=== PATIENT | female | born 1990 ===

== ENCOUNTER 2017-02-18 09:53 | Emergency (ER) | payer SELFPAY ==
[2017-02-18 09:59] VITALS: BMI 17.2
--- NOTE | 2017-02-18 10:35 | C.PDOC ---
Time Seen by Provider: 02/18/17 10:20 Chief Complaint (Nursing): Syncope Past Medical History Vital Signs: Last Vital Signs Temp 98.1 F 02/18/17 10:00 Pulse 90 02/18/17 10:00 Resp 18 02/18/17 10:00 BP 115/65 02/18/17 10:00 Pulse Ox 99 02/18/17 10:00 - Medical History PMH: Asthma Denies: Chronic Kidney Disease Family History: States: Unknown Family Hx - Social History Hx Tobacco Use: No Hx Alcohol Use: No Hx Substance Use: No (unknown) - Immunization History Hx Influenza Vaccination: Yes (up to date) Hx Pneumococcal Vaccination: No ED Course And Treatment O2 Sat by Pulse Oximetry: 99
[2017-02-18] MEDS ORDERED: Sodium Chloride 0.9% 1,000 ML IV ONE (10:40)
[2017-02-18] MEDS ORDERED: Sodium Chloride 0.9% 1,000 ML ONE (11:00)
[2017-02-18 11:13] LABS: BASO % 0.4 % (0.0-2.0); EOS # 0.1 K/uL (0.0-0.7); EOS % 0.8 % (0.0-4.0); HEMATOCRIT 33.8 % (34.0-47.0); LYMPH # 2.2 K/uL (1.0-4.3); LYMPH % 24.6 % (20.0-40.0); MEAN CELL VOLUME 85.4 fL (81.0-99.0); MEAN CORPUSCULAR HEMOGLOBIN 27.9 pg (27.0-31.0); MEAN CORPUSCULAR HGB CONC 32.6 g/dL (33.0-37.0); MEAN PLATELET VOLUME 9.7 fL (7.2-11.7); MONO # 0.7 K/uL (0.0-0.8); MONO % 7.4 % (0.0-10.0); NRBC % 0.1 % (0.0-2.0); RED CELL DISTRIBUTION WIDTH 14.6 % (11.5-14.5); WHITE BLOOD COUNT 9.1 K/uL (4.8-10.8)
--- NOTE | 2017-02-18 11:25 | C.PDOC ---
History Of Present Illness 26 yr old female presents to the ER stating yesterday she was at a concert, started to feel weak and passed out. Admits to drinking alcohol and not eating well. Believes the heat caused the symptoms. Pt was evaluated in the ambulance, felt better after cooling down and did not want to be further evaluated. Patient comes in today stating she still feels weak. Pt is concerned she is . Denies seizure activity. Patient denies fever, vision changes, chest pain, SOB, nausea, vomiting, headache or dizziness. Time Seen by Provider: 02/18/17 10:20 Chief Complaint (Nursing): Syncope History Per: Patient History/Exam Limitations: no limitations Onset/Duration Of Symptoms: Days (1) Current Symptoms Are (Timing): Still Present Past Medical History Reviewed: Historical Data, Nursing Documentation, Vital Signs Vital Signs: Last Vital Signs Temp 97.4 F L 02/18/17 12:15 Pulse 63 02/18/17 12:15 Resp 20 02/18/17 12:15 BP 114/76 02/18/17 12:15 Pulse Ox 100 02/18/17 12:15 - Medical History PMH: Asthma Family History: States: No Known Family Hx - Social History Hx Tobacco Use: No Hx Alcohol Use: No Hx Substance Use: No (unknown) - Immunization History Hx Influenza Vaccination: Yes (up to date) Hx Pneumococcal Vaccination: No Review Of Systems Except As Marked, All Systems Reviewed And Found Negative. Constitutional: Positive for: Weakness. Negative for: Fever Eyes: Negative for: Vision Change Cardiovascular: Negative for: Chest Pain Respiratory: Negative for: Shortness of Breath Gastrointestinal: Negative for: Nausea, Vomiting Neurological: Negative for: Headache, Dizziness Physical Exam - Physical Exam Appears: Well, Non-toxic, No Acute Distress Skin: Normal Color, Warm, Dry, No Rash Head: Atraumatic, Normacephalic Eye(s): bilateral: Normal Inspection, PERRL, EOMI Nose: Normal Oral Mucosa: Moist Neck: Normal, Normal ROM, Supple Lymphatic: Normal Exam Chest: Symmetrical, No Tenderness Cardiovascular: Rhythm Regular, No Murmur Respiratory: Normal Breath Sounds, No Rales, No Rhonchi, No Wheezing Gastrointestinal/Abdominal: Normal Exam, Soft, No Tenderness, No Guarding, No Rebound Extremity: Normal ROM, No Swelling Neurological/Psych: Oriented x3, Normal Speech, Normal Cognition, Normal Cranial Nerves (2-12), Normal Motor, Other (no focal deficits.) ED Course And Treatment - Laboratory Results Result Diagrams: 02/18/17 11:06 02/18/17 11:06 ECG: Interpreted By Me, Viewed By Me ECG Rhythm: Sinus Bradycardia Rate From EC O2 Sat by Pulse Oximetry: 99 Progress Note: PLAN: EKG, Drug Screen, CBC, HCG, Urinalysis & Sodium Chlordie IV. Discussed risks and benefits of head CT, pt refused. Discussed lab results and limitations. Pt requests discharge and will follow up outpt. Instructed strict follow up in 1-2 days or return to ER if symptoms persist or worsen. Disposition - Disposition Disposition: HOME/ ROUTINE Disposition Time: 12:07 Condition: STABLE Additional Instructions: Follow up with your primary medical doctor or clinic in 2-5 days for further evaluation. Return to the emergency department at any time if symptoms persist or worsen. Instructions: Weakness (ED) - Clinical Impression Clinical Impression: Weakness - PA / AIRCRAFT AIR CONDITIONING MECHANIC / Resident Statement MD/DO has reviewed & agrees with the documentation as recorded. - Scribe Statement The provider has reviewed the documentation as recorded by the Scribe Frida Mckeon All medical record entries made by the Scribe were at my direction and personally dictated by me. I have reviewed the chart and agree that the record accurately reflects my personal performance of the history, physical exam, medical decision making, and the department course for this patient. I have also personally directed, reviewed, and agree with the discharge instructions and disposition.
[2017-02-18 11:27] LABS: CHLORIDE 105 mmol/L (98-107); SODIUM 139 mmol/L (132-148)
[2017-02-18 11:28] LABS: POTASSIUM 3.6 mmol/L (3.6-5.2)
[2017-02-18 11:30] LABS: ALB/GLOB RATIO 1.6 (1.0-2.1); AST/SGOT 13 U/L (14-36); BILIRUBIN,TOTAL 0.4 mg/dL (0.2-1.3); BLOOD UREA NITROGEN 15 mg/dL (7-17); CARBON DIOXIDE 25 mmol/L (22-30); GFR AFRICAN-AMERICAN > 60; TOTAL PROTEIN 6.5 g/dL (6.3-8.3)
[2017-02-18 11:31] LABS: CALCIUM 8.7 mg/dl (8.6-10.4); GLUCOSE,RANDOM 81 mg/dL (65-105)
[2017-02-18 11:32] LABS: ALKALINE PHOSPHATASE 47 U/L (38-126); ALT/SGPT 17 U/L (9-52)
[2017-02-18 11:54] LABS: RBC URINE 1 /hpf (0-3); URINE BILIRUBIN NEGATIVE (NEGATIVE); URINE BLOOD NEGATIVE (NEGATIVE); URINE COLOR Yellow (YELLOW); URINE GLUCOSE (UA) NORMAL (Normal); URINE KETONE NEGATIVE (NEGATIVE); URINE LEUKOCYTE ESTERASE NEG Leu/uL (Negative); URINE PROTEIN NEGATIVE (NEGATIVE); URINE UROBILINOGEN NORMAL mg/dL (0.2-1.0)
[2017-02-18 12:16] VITALS: BP 114/76; PULSE 63; RESP 20; TEMP 97.4
[2017-02-18 14:10] VITALS: O2SAT 99
--- NOTE | 2017-02-19 12:03 | CARD ---
APPROVED REPORT EKG Measurement Heart [id number] <Conclusion> Sinus bradycardia with marked sinus arrhythmia Otherwise normal ECG
== END 2017-02-18 12:15 | disposition home or self-care (01) ==
LOC: C.ER 09:53
DX: R53.1 Weakness (principal)
CPT/HCPCS: 80053; 81001; 84703; 85025; 93005; 96360; 99285; G0480; J7040

== ENCOUNTER 2017-04-08 13:08 | Emergency (ER) | payer OTHER ==
[2017-04-08 13:09] VITALS: BMI 17.2
[2017-04-08 13:24] VITALS: O2SAT 98
[2017-04-08 13:59] LABS: HCG,QUALITATIVE URINE NEGATIVE (NEGATIVE)
[2017-04-08 14:09] LABS: SQUAMOUS EPITHIAL 1 /hpf (0-5); URINE BILIRUBIN NEGATIVE (NEGATIVE); URINE BLOOD NEGATIVE (NEGATIVE); URINE CLARITY Hazy (Clear); URINE COLOR Yellow (YELLOW); URINE GLUCOSE (UA) NORMAL (Normal); URINE LEUKOCYTE ESTERASE NEG Leu/uL (Negative); URINE NITRATE NEGATIVE (NEGATIVE); URINE PROTEIN 2+ mg/dL (NEGATIVE); URINE UROBILINOGEN NORMAL mg/dL (0.2-1.0)
[2017-04-08] MEDS ORDERED: Sodium Chloride 0.9% 1,000 ML IV ONE (14:47)
--- NOTE | 2017-04-08 14:55 | C.PDOC ---
History Of Present Illness 26 y/o female w/o significant PMHx presents to the emergency department with complaints of right sided abdominal pain worsening over the past 4 days. Pt states pain is right by her scar and is worse with any movement. Pain is intermittent, aching and worse with movement, non-radiating, not affected by food.She is currently on her menses. Pt denies fever, chills, headache, dizziness, neck pain, sore throat, CP, SOB, dyspnea, diaphoresis, palpitation, vomiting, diarrhea, urinary symptoms, abnormal vaginal bleeding, loss of appetite or any other complaints. Ambulate to ED for evaluation, not n any apparent distress. Time Seen by Provider: 04/08/17 14:27 Chief Complaint (Nursing): Abdominal Pain History Per: Patient History/Exam Limitations: no limitations Onset/Duration Of Symptoms: Days Current Symptoms Are (Timing): Worse Severity: Moderate Radiation Of Pain To:: None Quality Of Discomfort: "Pain" Associated Symptoms: denies: Fever, Chills, Nausea, Vomiting, Diarrhea, Loss Of Appetite, Urinary Symptoms Exacerbating Factors: Movement Alleviating Factors: None Recent travel outside of the [place]: No Abnormal Vaginal Bleeding: No Past Medical History Reviewed: Historical Data, Nursing Documentation, Vital Signs Vital Signs: Last Vital Signs Temp 98.2 F 04/08/17 17:50 Pulse 82 04/08/17 17:50 Resp 16 04/08/17 17:50 BP 118/72 04/08/17 17:50 Pulse Ox 98 04/08/17 17:52 - Medical History PMH: Asthma Family History: States: Unknown Family Hx - Social History Hx Tobacco Use: No Hx Alcohol Use: No Hx Substance Use: No (unknown) - Immunization History Hx Influenza Vaccination: Yes (up to date) Hx Pneumococcal Vaccination: No Review Of Systems Except As Marked, All Systems Reviewed And Found Negative. Constitutional: Negative for: Fever, Chills Cardiovascular: Negative for: Chest Pain Respiratory: Negative for: Shortness of Breath Gastrointestinal: Positive for: Abdominal Pain. Negative for: Nausea, Vomiting , Diarrhea Genitourinary: Negative for: Dysuria, Frequency, Hematuria Musculoskeletal: Negative for: Back Pain Physical Exam - Physical Exam Appears: Well, Non-toxic, No Acute Distress Skin: Warm, Dry, No Rash Eye(s): bilateral: PERRL Nose: No Flaring Oral Mucosa: Moist, No Drooling Throat: No Erythema, No Drooling Neck: Supple Cardiovascular: Rhythm Regular Respiratory: No Decreased Breath Sounds, No Accessory Muscle Use, No Rales, No Rhonchi, No Stridor, No Wheezing Gastrointestinal/Abdominal: Soft, Tenderness (suprapubic and mild RLQ), No Organomegaly, No Distention, No Guarding, No Rebound Back: No CVA Tenderness Extremity: No Pedal Edema Extremity: Bilateral: Atraumatic Neurological/Psych: Oriented x3, Normal Speech, Normal Cognition ED Course And Treatment - Laboratory Results Result Diagrams: 04/08/17 15:00 04/08/17 15:00 Lab Interpretation: Normal O2 Sat by Pulse Oximetry: 98 (room air) Pulse Ox Interpretation: Normal - CT Scan/US Abd US Other Rad Studies (CT/US): Radiology Report Reviewed CT/US Interpretation: ccession No. : [id number]. Patient Name / ID : SHANNON GARCIA / [id number]. Exam Date : 04/08/2017 16:09:53 ( Approved ). Study Comment : Sex / Age : F / 26Y. Creator : David Holland MD. Dictator : David Holland MD. Aquatics Manager : Learning Strategist : David Holland MD. Approver2 : Report Date : 04/08/2017 17:13:33. My Comment : . PROCEDURE : CT Abdomen and Pelvis with contrast. HISTORY: RLQ pain. COMPARISON: None. TECHNIQUE: Contrast dose: 100 mL Visipaque 320. Radiation dose: Total exam DLP = 188.11 mGy-cm. This CT exam was performed using one or more of the following dose reduction techniques: Automated exposure control, adjustment of the mA and/or kV according to patient size, and/or use of iterative reconstruction technique. FINDINGS: LOWER THORAX: Unremarkable. LIVER: Unremarkable. No gross lesion or ductal dilatation. GALLBLADDER AND BILE DUCTS : Unremarkable. PANCREAS: Unremarkable. No gross lesion or ductal dilatation. SPLEEN: Unremarkable. ADRENALS: Unremarkable. No mass. KIDNEYS AND URETERS: Unremarkable. No hydronephrosis. No solid mass. VASCULATURE: Unremarkable. No aortic aneurysm. BOWEL: No bowel obstruction. No abnormal bowel loops are identified. APPENDIX: Normal appendix not identified. Cannot rule out appendicitis on the basis of this examination. PERITONEUM: Small amount of fluid in the cul-de-sac. LYMPH NODES: Unremarkable. No enlarged lymph nodes. BLADDER: Poorly distended. No gross abnormality. REPRODUCTIVE: Unremarkable uterus. Probable right hydrosalpinx. This is best demonstrated on sagittal series 602, image 54 and 55. Lateral to the superior extent of this probable hydrosalpinx, there is a soft tissue density, vaguely rounded, of uncertain significance. This does not have a characteristic appearance for an abscess but could represent a phlegmon as may be seen in either appendicitis or tubo-ovarian abscess. This could represent collapsed bowel but this is felt to be less likely given the appearance of adjacent loops of small bowel. Further evaluation with pelvic ultrasound examination is advised. BONES: No acute fracture. OTHER FINDINGS: None. IMPRESSION: Right hydrosalpinx. Small amount of fluid in the cul-de-sac. Normal appendix not identified. Vaguely rounded soft tissue density at the superior extent of the right hydrosalpinx, just laterally. Uncertain significance. Possible phlegmon associated with tubo- ovarian abscess or appendicitis. Further evaluation with pelvic ultrasound examination is advised. Normal appendix not definitely identified. Cannot rule out appendicitis. Progress Note: On re-eavluation, pt remained unchanged. Afebrile, hemodynamicaly stable. Still c/o mild suprapubic discomfort. Abd: benign, (-) guarding, (-) rebound. Blood work review and appears normal. CT abd/pelvis results review : Right hydrosalpinx. Small amount of fluid in the cul-de-sac. Normal appendix not identified. Vaguely rounded soft tissue density at the superior extent of the right hydrosalpinx, just laterally. Uncertain significance. Possible phlegmon associated with tubo-ovarian abscess or appendicitis. results discussed with pt and Pelvic US with further possibel SHIFT SUPERVISOR RN evaluation recommend. Pt sts, " she can not stay any more" and wish to be discharged. Risk of leaving AMA described to patient including complication of known and uknown condition including . Pt has full capacity to make decision and still wish to sign AMA. Pt advised return to Ed at any time to complete evaluation. return to Ed at any time if any worsening ro new changes. Disposition - Disposition Disposition: AGAINST MEDICAL ADVICE Disposition Time: 17:42 Condition: STABLE Forms: [employer] (Vietnamese) - Clinical Impression Clinical Impression: Abdominal pain - PA / PATTERN DUPLICATOR / Resident Statement MD/DO has reviewed & agrees with the documentation as recorded. - Scribe Statement The provider has reviewed the documentation as recorded by the Scribe Tan Taveras All medical record entries made by the Nickibmiley were at my direction and personally dictated by me. I have reviewed the chart and agree that the record accurately reflects my personal performance of the history, physical exam, medical decision making, and the department course for this patient. I have also personally directed, reviewed, and agree with the discharge instructions and disposition.
[2017-04-08] MEDS ORDERED: Sodium Chloride 0.9% 1,000 ML ONE (14:57)
[2017-04-08 15:04] LABS: BASO % 0.2 % (0.0-2.0); EOS % 0.2 % (0.0-4.0); LYMPH # 1.2 K/uL (1.0-4.3); LYMPH % 13.3 % (20.0-40.0); MEAN CORPUSCULAR HGB CONC 33.3 g/dL (33.0-37.0); MONO # 0.5 K/uL (0.0-0.8); MONO % 5.6 % (0.0-10.0); NEUT # 7.5 K/uL (1.8-7.0); NEUT % 80.7 % (50.0-75.0); RBC 4.13 Mil/uL (3.80-5.20); RED CELL DISTRIBUTION WIDTH 14.9 % (11.5-14.5); WHITE BLOOD COUNT 9.4 K/uL (4.8-10.8)
[2017-04-08 15:15] LABS: ALBUMIN 4.3 g/dL (3.5-5.0)
[2017-04-08 15:18] LABS: ALB/GLOB RATIO 1.3 (1.0-2.1); ALT/SGPT 27 U/L (9-52); AST/SGOT 24 U/L (14-36); BLOOD UREA NITROGEN 13 mg/dL (7-17); GFR AFRICAN-AMERICAN > 60; GFR NON-AFRICAN AMERICAN > 60
[2017-04-08 15:19] LABS: CALCIUM 9.1 mg/dl (8.6-10.4)
[2017-04-08] MEDS ORDERED: Iodixanol 320 MG/ML 100 ML BOTTLE IV ONE (16:00)
--- NOTE | 2017-04-08 17:15 | CT ---
PROCEDURE: CT Abdomen and Pelvis with contrast HISTORY: RLQ pain COMPARISON: None. TECHNIQUE: Contrast dose: 100 mL Visipaque 320 Radiation dose: Total exam DLP = 188.11 mGy-cm. This CT exam was performed using one or more of the following dose reduction techniques: Automated exposure control, adjustment of the mA and/or kV according to patient size, and/or use of iterative reconstruction technique. FINDINGS: LOWER THORAX: Unremarkable. LIVER: Unremarkable. No gross lesion or ductal dilatation. GALLBLADDER AND BILE DUCTS: Unremarkable. PANCREAS: Unremarkable. No gross lesion or ductal dilatation. SPLEEN: Unremarkable. ADRENALS: Unremarkable. No mass. KIDNEYS AND URETERS: Unremarkable. No hydronephrosis. No solid mass. VASCULATURE: Unremarkable. No aortic aneurysm. BOWEL: No bowel obstruction. No abnormal bowel loops are identified. APPENDIX: Normal appendix not identified. Cannot rule out appendicitis on the basis of this examination. PERITONEUM: Small amount of fluid in the cul-de-sac. LYMPH NODES: Unremarkable. No enlarged lymph nodes. BLADDER: Poorly distended. No gross abnormality. REPRODUCTIVE: Unremarkable uterus. Probable right hydrosalpinx. This is best demonstrated on sagittal series 602, image 54 and 55. Lateral to the superior extent of this probable hydrosalpinx, there is a soft tissue density, vaguely rounded, of uncertain significance. This does not have a characteristic appearance for an abscess but could represent a phlegmon as may be seen in either appendicitis or tubo-ovarian abscess. This could represent collapsed bowel but this is felt to be less likely given the appearance of adjacent loops of small bowel. Further evaluation with pelvic ultrasound examination is advised. BONES: No acute fracture. OTHER FINDINGS: None. IMPRESSION: Right hydrosalpinx. Small amount of fluid in the cul-de-sac. Normal appendix not identified. Vaguely rounded soft tissue density at the superior extent of the right hydrosalpinx, just laterally. Uncertain significance. Possible phlegmon associated with tubo-ovarian abscess or appendicitis. Further evaluation with pelvic ultrasound examination is advised. Normal appendix not definitely identified. Cannot rule out appendicitis.
[2017-04-08 18:09] VITALS: BP 118/72; PULSE 82; RESP 16; TEMP 98.2
== END 2017-04-08 17:50 | disposition left against medical advice (07) ==
LOC: C.ER 13:08
DX: R10.31 Right lower quadrant pain (principal)
CPT/HCPCS: 74177; 80053; 81001; 84703; 85025; 96361; 96374; 96375; 99285; J1885; J2405; J7040; Q9967

== ENCOUNTER 2018-04-27 07:16 | Emergency (ER) | payer MEDICAID ==
[2018-04-27 07:16] VITALS: BMI 17.2
--- NOTE | 2018-04-27 07:59 | C.PDOC ---
History Of Present Illness 27 y/o female presents to ED for complaints of dysuria that began this morning. Patient reports "I needed to urinate but only a little came out." Denies nausea , vomiting, flank pain, or any other physical complaints. Patient also reports she has not been drinking a lot of water lately. Time Seen by Provider: 04/27/18 07:40 Chief Complaint (Nursing): Female Genitourinary History Per: Patient History/Exam Limitations: no limitations Onset/Duration Of Symptoms: Hrs Current Symptoms Are (Timing): Still Present Quality Of Discomfort: "Pain" Associated Symptoms: Urinary Symptoms. denies: Fever, Chills, Nausea, Vomiting , Diarrhea Recent travel outside of the [place]: No Abnormal Vaginal Bleeding: No Past Medical History Reviewed: Historical Data, Nursing Documentation, Vital Signs Vital Signs: Last Vital Signs Temp 98.2 F 04/27/18 07:32 Pulse 71 04/27/18 07:32 Resp 18 04/27/18 07:32 BP 114/77 04/27/18 07:32 Pulse Ox 100 04/27/18 08:03 - Medical History PMH: Asthma Family History: States: Unknown Family Hx - Social History Hx Tobacco Use: No Hx Alcohol Use: No Hx Substance Use: No (unknown) - Immunization History Hx Tetanus Toxoid Vaccination: No Hx Influenza Vaccination: No Hx Pneumococcal Vaccination: No Review Of Systems Constitutional: Negative for: Fever, Chills Gastrointestinal: Negative for: Nausea, Vomiting, Abdominal Pain, Diarrhea Genitourinary: Positive for: Dysuria. Negative for: Vaginal Discharge, Vaginal Bleeding Skin: Negative for: Rash Neurological: Negative for: Weakness, Numbness Physical Exam - Physical Exam Appears: Well, Non-toxic, No Acute Distress Skin: Normal Color, Warm, Dry, No Rash Head: Atraumatic, Normacephalic Eye(s): bilateral: Normal Inspection, PERRL, EOMI Oral Mucosa: Moist Neck: Supple Chest: Symmetrical, No Tenderness Cardiovascular: Rhythm Regular Respiratory: Normal Breath Sounds, No Decreased Breath Sounds, No Rales, No Rhonchi, No Wheezing Gastrointestinal/Abdominal: Soft, Tenderness (Minimal suprapubic tenderness) Extremity: Normal ROM, No Deformity Extremity: Bilateral: Atraumatic, Normal Color And Temperature, Normal ROM Neurological/Psych: Oriented x3, Normal Speech Gait: Steady ED Course And Treatment O2 Sat by Pulse Oximetry: 100 (RA) Pulse Ox Interpretation: Normal Medical Decision Making Medical Decision Making: Ordered Urinalysis. UTI noted. Results discussed with patient. Rx written for abx. Advised completing course of abx and following up with PMD as needed. Return to the ED for any new or worsening symptoms. Urine culture sent. Disposition - Disposition Disposition: HOME/ ROUTINE Disposition Time: 09:02 Condition: GOOD Additional Instructions: RADHA ORTEGA, thank you for letting us take care of you today. Your provider was Jerrica Yin MD and you were treated for URINARY PROBLEM. The emergency medical care you received today was directed at your acute symptoms. If you were prescribed any medication, please fill it and take as directed. It may take several days for your symptoms to resolve. Return to the Emergency Department if your symptoms worsen, do not improve, or if you have any other problems. Please contact your doctor or call one of the physicians/clinics you have been referred to that are listed on the Patient Visit Information form that is included in your discharge packet. Bring any paperwork you were given at discharge with you along with any medications you are taking to your follow up visit. Our treatment cannot replace ongoing medical care by a primary care provider outside of the emergency department. Thank you for allowing the [facility] team to be part of your care today. If you had an X-Ray or CT scan: A Radiologist will review the ED reading if any change in treatment is needed we will contact you. If you had a blood, urine, or wound culture: It will take several days for the results, if any change in treatment is needed we will contact you. If you had an STI test: It will take 48 hours for the results. Please call after 1 week if you have not heard back. Prescriptions: Nitrofurantoin Macrocrystals [Macrobid] 100 mg PO BID #14 cap Instructions: Urinary Tract Infection, Adult (DC) Forms: [employer] (Kenyan) - Clinical Impression Clinical Impression: Urinary tract infection - PA / OTOLARYNGOLOGY SURGEON / Resident Statement MD/DO has reviewed & agrees with the documentation as recorded. - Scribe Statement The provider has reviewed the documentation as recorded by the Scribe Marjan Ng All medical record entries made by the Scribe were at my direction and personally dictated by me. I have reviewed the chart and agree that the record accurately reflects my personal performance of the history, physical exam, medical decision making, and the department course for this patient. I have also personally directed, reviewed, and agree with the discharge instructions and disposition.
[2018-04-27 08:40] LABS: SQUAMOUS EPITHIAL 13 /hpf (0-5); URINE BACTERIA MANY (<OCC); WBC CLUMPS FEW /hpf
[2018-04-27 08:50] LABS: URINE BILIRUBIN MODERATE (NEGATIVE); URINE CLARITY Turbid (Clear); URINE GLUCOSE (UA) Normal (Normal)
[2018-04-27 08:52] LABS: PH,URINE 6.5 (5.0-8.0); URINE BLOOD LARGE (NEGATIVE); URINE PROTEIN > 300 mg/dL (NEGATIVE)
[2018-04-27 08:53] LABS: URINE LEUKOCYTE ESTERASE MODERATE Leu/uL (Negative)
[2018-04-27 08:54] LABS: URINE COLOR DARK YELLOW (YELLOW)
[2018-04-27 09:06] VITALS: BP 109/68; PULSE 78; RESP 20; TEMP 98.3; O2SAT 99
== END 2018-04-27 09:10 | disposition home or self-care (01) ==
LOC: C.ER 07:16
DX: N39.0 Urinary tract infection, site not specified (principal)

== ENCOUNTER 2018-06-28 14:14 | Emergency (ER) | payer MEDICAID ==
[2018-06-28 14:14] VITALS: BMI 17.2
[2018-06-28 14:18] VITALS: BP 122/79; PULSE 96; RESP 18; TEMP 98.4; O2SAT 99
[2018-06-28 15:14] LABS: SQUAMOUS EPITHIAL 13 /hpf (0-5); URINE BACTERIA RARE (<OCC); URINE BILIRUBIN NEGATIVE (NEGATIVE); URINE BLOOD NEGATIVE (NEGATIVE); URINE CLARITY Clear (Clear); URINE COLOR Yellow (YELLOW); URINE GLUCOSE (UA) NORMAL (Normal); URINE LEUKOCYTE ESTERASE TRACE Leu/uL (Negative); URINE PROTEIN 1+ mg/dL (NEGATIVE)
--- NOTE | 2018-06-28 16:05 | C.PDOC ---
History Of Present Illness 27 year old female patient presents to the ER with c/o bladder pressure after urinating. Associated symptoms includes intermittent clear vaginal discharge along with urinary frequency. Patient denies abdominal pain, nausea and vomiting. Patient notes she has unprotected sex with 1 partner who has no complaints. <Aye Ledesma - Last Filed: 06/28/18 16:11> History Per: Patient History/Exam Limitations: no limitations Onset/Duration Of Symptoms: Days Current Symptoms Are (Timing): Still Present <Aye Ledesma - Last Filed: 06/28/18 16:11> <Jackson Mohamud - Last Filed: 07/01/18 13:28> Time Seen by Provider: 06/28/18 14:22 Chief Complaint (Nursing): Female Genitourinary Past Medical History Reviewed: Historical Data, Nursing Documentation, Vital Signs Vital Signs: Last Vital Signs Temp 98.4 F 06/28/18 14:15 Pulse 96 H 06/28/18 14:15 Resp 18 06/28/18 14:15 BP 122/79 06/28/18 14:15 Pulse Ox 99 06/28/18 14:15 - Medical History PMH: Asthma Family History: States: Unknown Family Hx - Social History Hx Tobacco Use: No Hx Alcohol Use: No Hx Substance Use: No (unknown) - Immunization History Hx Tetanus Toxoid Vaccination: No Hx Influenza Vaccination: No Hx Pneumococcal Vaccination: No <Aye Ledesma - Last Filed: 06/28/18 16:11> Vital Signs: Last Vital Signs Temp 98.4 F 06/28/18 14:15 Pulse 96 H 06/28/18 14:15 Resp 18 06/28/18 16:22 BP 122/79 06/28/18 14:15 Pulse Ox 99 06/28/18 16:19 <Jackson Mohamud - Last Filed: 07/01/18 13:28> Review Of Systems Gastrointestinal: Negative for: Nausea, Vomiting, Abdominal Pain Genitourinary: Positive for: Frequency, Vaginal Discharge (intermittent; clear), Other (bladder pressure) <Aye Ledesma - Last Filed: 06/28/18 16:11> Physical Exam - Physical Exam Appears: Well, Non-toxic, No Acute Distress Skin: Normal Color, Warm, Dry Gastrointestinal/Abdominal: Soft, No Tenderness Back: No CVA Tenderness Pelvic: Vaginal Discharge (scantthin white discharge), No Cervical Motion Tenderness, No Cervix Open (closed), No Adnexal Tenderness Extremity: Normal ROM (x4) <Aye Ledesma - Last Filed: 06/28/18 16:11> ED Course And Treatment O2 Sat by Pulse Oximetry: 99 (RA) Pulse Ox Interpretation: Normal Progress Note: Impression: bladder pressure, urinary frequency with clear vaginal discharge. Plans: -- Chlamydia/GC. -- urine Cx. -- UA. -- pelvic exam. note: pelvic exam chaperoned by MARICRUZ Manuel. <Aye Ledesma - Last Filed: 06/28/18 16:11> Medical Decision Making Medical Decision Making: pt with urinary presseure, 2- wbc, will tx for uti, also tx for vaginitis with metrogel <Aye Ledesma - Last Filed: 06/28/18 16:11> Disposition Counseled Patient/Family Regarding: Studies Performed, Diagnosis, Need For Followup, Rx Given - Disposition Disposition Time: 16:08 <Aye Ledesma - Last Filed: 06/28/18 16:11> <Jackson Mohamud - Last Filed: 07/01/18 13:28> - Disposition Disposition: HOME/ ROUTINE Condition: GOOD Additional Instructions: Please take antibiotics for uti until completed. Use metro-gel at bedtime for one week. Do not drink alcohol for next 2 weeks- interacts with medications. Follow up with your receiving distribution station operator. Prescriptions: Metronidazole [Metrogel-Vaginal] 1 ea VG HS #7 gel Nitrofurantoin Macrocrystals [Macrobid] 100 mg PO BID #14 cap Instructions: Bacterial Vaginosis (DC), Urinary Tract Infection, Adult (DC) Forms: [facility] (Chinese), General Discharge Instructions - Clinical Impression Clinical Impression: Vaginitis, Urinary tract infection - PA / COPY HOLDER / Resident Statement / has reviewed & agrees with the documentation as recorded. - Scribe Statement The provider has reviewed the documentation as recorded by the Shira Ma Do All medical record entries made by the Scribe were at my direction and personally dictated by me. I have reviewed the chart and agree that the record accurately reflects my personal performance of the history, physical exam, medical decision making, and the department course for this patient. I have also personally directed, reviewed, and agree with the discharge instructions and disposition. <Aye Ledesma - Last Filed: 06/28/18 16:11> - PA / COPY HOLDER / Resident Statement / has reviewed & agrees with the documentation as recorded. <Jackson Mohamud - Last Filed: 07/01/18 13:28>
== END 2018-06-28 16:24 | disposition home or self-care (01) ==
LOC: C.ER 14:14
DX: N39.0 Urinary tract infection, site not specified (principal); N76.0 Acute vaginitis